=== PATIENT | female | born 2000 | race Hispanic/Latino ===

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

== ENCOUNTER 2020-02-24 03:11 | Emergency (ER) | payer BC ==
--- OUTSIDE RECORDS SUMMARY | 2020-02-24 03:13 | XMS REPORT | Continuity of Care Document ---
:2000 Author Organization [facility] t Address [address] [place] [address] Care Team Providers Name Role Phone Lab, Fam Pob I Attending Clinician Unavailable Maylin BARKLEY, H Attending Clinician Problems This patient has no known problems. Allergies, Adverse Reactions, Alerts This patient has no known allergies or adverse reactions. Medications This patient has no known medications. Procedures This patient has no known procedures. Encounters Start End Encounter Admission Attending Care Care Encounter Source Date/Time Date/Time Type Type Clinicians Facility Department ID 2019-11-13 2019-11-13 Laboratory Lab, [facility] [id number] 13:32:35 13:52:35 Only Fam Pob I Health [id number] [place] [id number] Professio [phone] [address]al [address] 2019-11-03 2019-11-03 Telephone Maylin [facility] [id number] 00:00:00 00:00:00 [facility] [id number] [place] [id number] Professio [phone] nal [phone] 2019-11-01 2019-11-01 Laboratory Lab, [facility] [id number] 15:36:31 15:56:31 Only Fam Pob I Health [id number] [place] [id number] Profess[facility] [phone] nal [address] Results This patient has no known results.
--- NOTE | 2020-02-24 03:40 | ER ---
Nurse's Notes [facility] Name: Tessa Portillo Age: 19 yrs Sex: Female : 2000 Arrival Date: 02/24/2020 Time: 03:14 Bed Waiting [facility] MD: Diagnosis: ED Course: 02/23 03:14 Patient arrived in ED. bp1 Administered Medications: No medications were administered Outcome: 03:39 Patient left the ED. sg Signatures: Tonio Doyle RN RN Megan Light bp1
== END 2020-02-24 03:39 | disposition left against medical advice (07) ==
LOC: ER 03:11
DX: Z02.9 Encounter for administrative examinations, unspecified (principal)